=== PATIENT | female | born 1980 | race Caucasian/White ===

== ENCOUNTER 2019-06-06 09:42 | Day surgery (SDC) | payer BC ==
[~2019-06-06] VITALS: Ht 172.7 cm; Wt 62.1 kg
[2019-06-06] VITALS (9 sets, daily range): BP systolic 95–109; BP diastolic 57–76
[2019-06-06] MEDS ORDERED: Sterile Water Irrig 1000ml IRRIG ONE (09:43)
[2019-06-06] MEDS ORDERED: LR 1000ml ONE (09:43)
[2019-06-06] MEDS ORDERED: Lidocaine 1% 10mg/ml/Epi 0.005mg/ml 30ml vial INJ ONE (10:11)
[2019-06-06] MEDS ORDERED: Bacitracin 50000 Units Vial ONE (10:12)
[2019-06-06] MEDS ORDERED: Propofol 200mg/20ml IV ONE (10:21)
[2019-06-06] MEDS ORDERED: fentaNYL 100 mcg/2 mL IV ONE (10:21)
[2019-06-06] MEDS ORDERED: Lidocaine 1% MPF 10mg/ml 5ml ONE (10:21)
[2019-06-06] MEDS ORDERED: Midazolam 2mg/2ml Inj ONE (10:21)
--- NOTE | 2019-06-06 10:30 | Pre-Procedure Note/Attestation ---
Pre-Procedure Note/Attestation Complete Prior to Procedure Planned Procedure: left Procedure Narrative: Left vulvar excision of hidradenitis lesion Attestation I attest that I discussed the nature of the procedure; its benefits; risks and complications; and alternatives (and the risks and benefits of such alternatives ), prior to the procedure, with the patient (or the patient's legal service representative). I attest that, if there was a reasonable possibility of needing a blood transfusion, the patient (or the patient's legal service representative) was given the [facility] standardized written summary, pursuant to the [place] Blood Safety Act ([place] Health and Safety Code # 1645, as amended). I attest that I re-evaluated the patient just prior to the surgery and that there has been no change in the patient's H&P, except as documented below: Claudia Lugo MD Jun 06, 2019 10:30
[2019-06-06] MEDS ORDERED: NS Irrig 1000ml IRRIG ONE ×2 (10:32→10:56)
[2019-06-06] MEDS ORDERED: OCREVUS IV (10:34)
[2019-06-06] MEDS ORDERED: Ketorolac 30mg Inj ONE (10:52)
[2019-06-06] MEDS ORDERED: LR 1000ml 1,000 ML IVLG SCH ×2 (10:59→11:50)
--- NOTE | 2019-06-06 10:59 | Anethesia Preoperative Eval ---
Anesthesia Pre-op PMH/ROS General Date of Evaluation: Jun 06, 2019 Time of Evaluation: 10:08 Anesthesiologist: Roby ASA Score: ASA 2 Mallampati Score Class I : Soft palate, uvula, fauces, pillars visible Class II: Soft palate, uvula, fauces visible Class III: Soft palate, base of uvula visible Class IV: Only hard plate visible Mallampati Classification: Class II Surgeon: Parish Diagnosis: Groin H Surgical Procedure: Excision of groin HS Anesthesia History: none Family History: no anesthesia problems Medications: see eMAR Patient NPO?: Yes Past Medical History Cardiovascular: Denies: HTN, CAD, [place], valve dz, arrhythmia, other Pulmonary: Denies: asthma, COPD, [place], other Gastrointestinal/Genitourinary: Denies: GERD, CRI, ESRD, other Neurologic/Psychiatric: Denies: dementia, CVA, depression/anxiety, TIA, other Endocrine: Denies: DM, hypothyroidism, steroids, other HEENT: Denies: cataract (L), cataract (R), glaucoma, [place] (L), [place] (R), other Hematology/Immune: Denies: anemia, DVT, bleeding disorder, other Musculoskeletal/Integumentary: Reports: other - MIld HS, MS in remission, minimal simptoms; Denies: OA, RA, DJD, DDD, edema PMH Narrative: as above PSxH Narrative: None Anesthesia Pre-op Phys. Exam Physician Exam Last Vital Signs Date Time Temp Pulse Resp B/P (MAP) Pulse Ox O2 Delivery O2 Flow Rate FiO2 06/06/19 10:24 Room Air 06/06/19 10:13 97.7 67 18 101/58 97 Constitutional: NAD Neurologic: CN 2-12 intact Cardiovascular: RRR, no M/R/G Respiratory: CTA Gastrointestinal: S/NT/ND Airway Exam Mallampati Score: Class II MO: full Neck: Flexible ROM: full Teeth: intact Dentures: no upper, no lower Anesthesia Pre-op A/P Labs Urine Test Test 06/06/19 09:50 Urine HCG, Qualitative Pending Risk Assessment & Plan Assessment: ASA 2 Plan: GA with LMA Status Change Before Surgery: No Pre-Antibiotics Drug: Ancef 1gr Given Within 1 Hr of Incision: Yes Time Given: 10:42 Chiki Ca MD Jun 06, 2019 10:59
[2019-06-06] MEDS ORDERED: TransDerm Scop 1.5mg/72HR Patch TDERMAL ONE (11:00)
[2019-06-06] MEDS ORDERED: Metoclopramide 10mg/2ml Inj IVP PRN ×2 (11:00→12:00)
[2019-06-06] MEDS ORDERED: Meperidine 50mg/ml Inj(FOR RIGORS ONLY) IV PRN ×2 (11:00→12:00)
[2019-06-06] MEDS ORDERED: Ketorolac 30mg Inj IV PRN ×2 (11:00→12:00)
--- NOTE | 2019-06-06 11:07 | Operative Note - PDOC ---
Operative Note Operative Note Pre-op Diagnosis: Left vulvar HS Procedure: Excision of left vulvar HS Surgeon: Parish Anesthesia: general Specimen: yes Complications: none Condition: stable Estimated Blood Loss: minimal Drains: none Implant(s) used?: No Claudia Lugo MD Jun 06, 2019 11:07
--- NOTE | 2019-06-06 11:19 | Immediate Post-Op Evaluation ---
Immediate Post-Op Evalulation Immediate Post-Op Evalulation Procedure: Excision and closure of groin HS Date of Evaluation: Jun 06, 2019 Time of Evaluation: 11:18 IV Fluids: 800 Blood Products: none Estimated Blood Loss: min Urinary Output: none Blood Pressure Systolic: 98 Blood Pressure Diastolic: 54 Pulse Rate: 68 Respiratory Rate: 20 O2 Sat by Pulse Oximetry: 99 Temperature (Fahrenheit): 97.6 Pain Score (1-10): 1 Nausea: No Vomiting: No Complications none Patient Status: reacts, patent, none Hydration Status: adequate Chiki Ca MD Jun 06, 2019 11:19
--- NOTE | 2019-06-06 14:45 | Operative Note - Dictated ---
DATE OF OPERATION: 06/06/2019 PREOPERATIVE DIAGNOSIS: Left vulvar hidradenitis suppurativa. POSTOPERATIVE DIAGNOSIS: Left vulvar hidradenitis suppurativa. PROCEDURE: Excision of left vulvar hidradenitis suppurativa. SURGEON: Claudia Lugo M.D. [employer] LAB[employer]ER: None. ANESTHESIA: General. COMPLICATIONS: None. DRAINS: None. EBL: Minimal. DISPOSITION: Stable to the recovery room. 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 She has had previous excision of groin and perineal lesions and presented to my office approximately 10 days ago with a specific area in the left vulvar region and perineum which was causing a significant pain and discomfort with occasional flares. On examination, area measured approximately 2 x 2 cm and was at time of my exam in the office a discrete mass consistent with hidradenitis suppurativa disease. She wanted to have the area removed. I expressed to her that she was an appropriate candidate for the excision with closure of the wound. She understood the risks, benefits of surgery and agreed to proceed. DETAILS OF THE OPERATION: The patient was brought to the operating room and laid in the supine position on the operating room table. After placement of the induction of anesthesia, she was placed in lithotomy. The area of the disease was marked with an elliptical type of incision measuring 3 x 2 cm. It is slightly larger than the incision itself but using an elliptical type of incision to allow for a tension-free closure, a total of 5 mL of lidocaine with epinephrine was injected into the base of the lesion and after 2 minutes elapsed a #15 blade was used to make the elliptical incision. Electrocautery was then used to remove the lesion as one piece and once this was done, we noted that there was a little bit of tension not allowing for a tension-free closure on the wound as such we had to raise a skin flap laterally to allow for appropriate undermining and reapproximation of the skin. This was done using electrocautery. Once undermining was performed, the wound was then closed following achievement of hemostasis with 3-0 Vicryl sutures of the dermal layer and multiple interrupted 3-0 Prolene sutures for the skin. Dermabond was then applied to the skin. A piece of Telfa was placed over the skin and a bulky dressing was then applied. The patient tolerated the procedure well. All sponge and needle counts were correct at the end of the case. Claudia Lugo M.D. DR: Jacky JOB#: [id number] CC:
[2019-06-07 07:52] VITALS: BP 112/56
--- NOTE | 2019-06-07 07:52 | 48 Hour Post Anesthesia Eval ---
Post Anesthesia Evaluation Procedure: Excision and closure of groin HS Date of Evaluation: Jun 06, 2019 Time of Evaluation: 12:30 Blood Pressure Systolic: 112 0: 56 Pulse Rate: 72 Respiratory Rate: 18 Temperature (Fahrenheit): 97.6 O2 Sat by Pulse Oximetry: 98 Airway: patent Nausea: No Vomiting: No Pain Intensity: 1 Hydration Status: adequate Cardiopulmonary Status: stable Mental Status/LOC: patient returned to baseline Follow-up Care/Observations: n/a Post-Anesthesia Complications: none Follow-up care needed: ready to discharge Chiki Ca MD Jun 07, 2019 07:52
== END 2019-06-06 12:40 | disposition home or self-care (01) ==
LOC: SUR 09:42
DX: L73.2 Hidradenitis suppurativa (principal)
CPT/HCPCS: 11470; 81025; J0690; J1885; J2250; J2405; J2704; J3010; 94003; 94150